=== PATIENT | male | born 1995 | race African-American/Black ===

== ENCOUNTER 2017-02-01 17:58 | Emergency (ER) | payer OTHER ==
[2017-02-01] MEDS ORDERED: HYDROcodone/ACETAMIN 5-325 MG* 1 TAB PO ONE (18:21)
--- NOTE | 2017-02-01 18:55 | RAD ---
Indication: Open wound RIGHT third finger following injury. Comparison: No relevant prior exams available on the [facility] [place]. Technique: AP, lateral, and oblique views RIGHT third finger. REPORT AND IMPRESSION: Bandage limits assessment of the soft tissues at the level of the middle and distal phalanges. Negative for fracture or malalignment. Soft tissue swelling most prominent over the radial and volar aspect.
--- NOTE | 2017-02-01 19:12 | ED ---
Laceration/Wound HPI - HPI Summary HPI Summary: 21M presents with right middle finger laceration. He went up for a shot with a basketball and cut it on the rim of the basketball hoop. He has range of motion of his finger. He is right handed. he denies any numbness or tingling. The area has continued to bleed. He is a student at [employer]. He denies any foreign body. His tetanus was within 5 years. - History of Current Complaint Stated Complaint: RT RING FINGER INJURY Time Seen by Provider: 02/01/17 18:28 Pain Intensity: 9 - Allergy/Home Medications Allergies/Adverse Reactions: Allergies Allergy/AdvReac Type Severity Reaction Status Date / Time No Known Allergies Allergy Verified 11/04/12 16:09 PMH/Surg Hx/FS Hx/Imm Hx Endocrine/Hematology History: Denies: Hx Anticoagulant Therapy Cardiovascular History: Denies: Hx Hypertension Respiratory History: Reports: Hx Asthma - Surgical History Surgery Procedure, Year, and Place: WISDOM TEETH EXTRACTION Infectious Disease History: No Infectious Disease History: Denies: Traveled Outside the [place] in Last 30 Days - Family History Known Family History: Negative: Diabetes - Social History Alcohol Use: None Substance Use Type: Reports: None Smoking Status (MU): Never Smoked Tobacco Review of Systems Negative: Fever Negative: Chest Pain Negative: Shortness Of Breath Positive: Other - right middle finger lac All Other Systems Reviewed And Are Negative: Yes Physical Exam Triage Information Reviewed: Yes Vital Signs On Initial Exam: Initial Vitals Temp Pulse Resp BP Pulse Ox 99.2 F 70 20 148/77 100 02/01/17 18:21 02/01/17 18:21 02/01/17 18:21 02/01/17 18:21 02/01/17 18:21 Vital Signs Reviewed: Yes Appearance: Positive: Well-Appearing Skin: Positive: Warm, Dry Head/Face: Positive: Normal Head/Face Inspection Eyes: Positive: Normal, Conjunctiva Clear Respiratory/Lung Sounds: Positive: Clear to Auscultation, Breath Sounds Present Cardiovascular: Positive: Normal, RRR Musculoskeletal: Positive: Strength/ROM Intact - right middle finger, Other - 3cm triangular laceration of right middle phalanx of middle fingers Neurological: Positive: Normal - sensation intact - [place] Coma Scale Coma Scale Total: 15 Procedures - Laceration/Wound Repair 1 Location: Other - right middle finger Description: Irregular Anesthesia: Digital, 1.0% Length, Depth and Shape: 3cm by 1/2 cm laceration Betadine Prep?: Yes Irrigated w/ Saline (ccs): 1,000 Laceration/Wound Explored: no foreign body removed Closure: Single Layer Suture Type: Prolene - 4-0 Number of Sutures: 11 Sterile Dressing Applied?: Yes - telfa, coband, and metal finger splint Diagnostics - Vital Signs Vital Signs Temp Pulse Resp BP Pulse Ox 02/01/17 18:21 99.2 F 70 20 148/77 100 - Laboratory Lab Statement: Any lab studies that have been ordered have been reviewed, and results considered in the medical decision making process. Laceration Repair Course/Dx - Course Course Of Treatment: 21M presents with right middle finger laceration. He went up for a shot with a basketball and cut it on the rim of the basketball hoop. He has range of motion of his finger. He is right handed. he denies any numbness or tingling. has 3cm laceration of right middle finger potentially over flexor tendon although still has full ROM. extensively irrigated area and placed 11 sutures. will have follow up ortho due to potential tendon damage. will place on amoxicillin to prevent infection. patient understands and agrees with plan. - Differential Dx Differental Diagnoses: Abrasion, Avulsion, Laceration - Clinical Impression Provider Diagnoses: Laceration of right middle finger Discharge - Discharge Plan Condition: Good Disposition: HOME Prescriptions: Amoxicillin PO (*) [Amoxicillin 500 MG CAP*] 500 mg PO BID #13 cap Patient Education Materials: Care For Your Stitches (ED) Referrals: Emerson Weir MD [Medical Doctor] - Additional Instructions: Keep area in splint, change dressing once a day Keep area clean and dry for 48 hours Take Tylenol or ibuprofen for pain every 6 hours Return to ED, urgent care or [facility] for suture removal in 10-14 days follow up with ortho to make sure no tendon damage Take antibiotic once a day for 7 days Return to ED if develop signs of infection such as fever, spreading redness, or pus formation or any new or worsening symptoms
[2017-02-01] MEDS ORDERED: Amoxicillin PO (*) 250 MG CAP PO ONE (20:09)
[2017-02-01 20:22] VITALS: BP 137/81
== END 2017-02-01 20:27 | disposition home or self-care (01) ==
LOC: ED 17:58
DX: S61.212A Laceration without foreign body of right middle finger without damage to nail, initial encounter (principal); W26.9XXA Contact with unspecified sharp object(s), initial encounter; Y93.67 Activity, basketball; Y92.9 Unspecified place or not applicable
CPT/HCPCS: 12002; 73140; 99282; A9270-GY